=== PATIENT | male | born 1970 | race African-American/Black ===

== ENCOUNTER 2020-10-23 16:19 | Inpatient (IN) | payer MEDICARE, OTHER ==
[2020-10-23] VITALS (18 sets, daily range): BP systolic 89–122; BP diastolic 46–82
[~2020-10-23] VITALS: Ht 167.6 cm; Wt 139.0 kg
[2020-10-23] MEDS ORDERED: SUCCINYLCHOLINE CHLORIDE 20 MG/ML 10ML VIAL IV ONE (17:14)
[2020-10-23] MEDS ORDERED: ETOMIDATE (2MG/ML) 20ML VIAL IV ONE (17:14)
[2020-10-23] MEDS ORDERED: NOREPINEPHRINE 8 MG/250ML KIT 250 ML IV ONE (17:19)
[2020-10-23] MEDS: NOREPINEPHRINE 8 MG/250ML KIT 250 ML IV SCH (17:20)
[2020-10-23] MEDS ORDERED: PROPOFOL 100 ML IV ONE (17:29)
[2020-10-23] MEDS: MIDAZOLAM DRIP 50 mg/50mL 50 ML IV SCH ×2 (17:39→23:30)
[2020-10-23 17:42] LABS: Basophils # (auto) 0 10 ^3/uL (0-0.2); Basophils % (auto) 0.1 % (0.0-2.0); Eosinophils # (auto) 0 10 ^3/uL (0-0.8); Hematocrit 27.6 % (41.0-53.0); Hemoglobin 8.8 g/dL (13.5-17.5); Lymphocytes # (auto) 0.9 10 ^3/uL (0.4-5.4); Lymphocytes % (auto) 11.1 % (10.0-50.0); Mean Corpuscular Hemoglobin 27.7 pg (28.0-32.0); Mean Corpuscular Hgb Conc. 31.8 g/dL (32.0-36.0); Mean Corpuscular Volume 87.3 fL (80.0-100.0); Monocytes # (auto) 0.8 10 ^3/uL (0-1.3); Monocytes % (auto) 9.8 % (0.0-12.0); Neutrophils # (auto) 6.7 10 ^3/uL (1.6-8.6); Nucleated Red Blood Cells % 0.1 %; Red Blood Cells 3.16 10^6/uL (4.5-5.90); Red Cell Distribution Width 14.8 % (11.8-14.3); White Blood Cell 8.4 10^3/uL (4.4-10.8)
[2020-10-23] MEDS ORDERED: cefTRIAXone 1GM/50ML D5W 50 ML IV ONE (17:45)
[2020-10-23] MEDS ORDERED: FUROSEMIDE 40 MG/4 ML VIAL IV ONE (17:45)
[2020-10-23] MEDS ORDERED: AZITHROMYCIN 500MG/ 250ML 250 ML IV ONE (17:45)
[2020-10-23 17:51] LABS: Albumin 1.5 g/dL (3.4-5.0); Anion Gap 9 (5-15); Blood Urea Nitrogen 18 mg/dL (7-18); Carbon Dioxide 17 mmol/L (21-32); Chloride 121 mmol/L (98-107); Glucose 64 mg/dL (74-106); Sodium 147 mmol/L (136-145)
[2020-10-23 17:53] LABS: Lactic Acid w/Reflex 5.1 mmol/L (0.4-2.0)
[2020-10-23 17:57] LABS: Alanine Aminotransferase 30 U/L (16-61); Alkaline Phosphatase 67 U/L (45-117); Aspartate Aminotransferase 30 U/L (15-37); Bilirubin, Total 0.2 mg/dL (0.2-1.0); GFR African American 187 mL/min; GFR Non-African American 155 mL/min; INR 1.29 (0.9-1.15); Partial Thromboplastin Time 27.4 sec (23.0-31.2); Total Protein 3.2 g/dL (6.4-8.2)
[2020-10-23] MEDS: PROPOFOL 100 ML IV SCH (18:05)
[2020-10-23 18:22] LABS: Potassium 2.2 mmol/L (3.5-5.1)
[2020-10-23 18:23] LABS: Calcium < 5.0 mg/dL (8.5-10.1)
[2020-10-23] MEDS ORDERED: ALBUTEROL SULF HFA 90MCG INH 200DOSE IN PRN (18:30)
[2020-10-23] MEDS: POTASSIUM CHL 20MEQ/100ML 100 ML IV SCH ×5 (18:30→22:35)
[2020-10-23] MEDS ORDERED: PANTOPRAZOLE 40 MG/10 ML VIAL INJ IV ONE (18:30)
[2020-10-23] MEDS ORDERED: PROMETHAZINE HCL 25 MG/ML 1ML IV PRN (18:30)
[2020-10-23] MEDS ORDERED: CALCIUM CHL 100MG/ML 1,000 MG in D5W 5% 100 ML IV ONE (18:30)
[2020-10-23] MEDS ORDERED: MORPHINE SULFATE INJECTION 2 MG/ML SYRG IV PRN (19:15)
[2020-10-23] MEDS ORDERED: NITROGLYCERIN 0.4 MG SL TAB SL PRN (19:15)
[2020-10-23 19:26] LABS: Urine Bacteria FEW /hpf (None Seen); Urine Blood TRACE /uL (Negative); Urine Hyaline Cast MOD /lpf (0 - 2); Urine Mucus FEW (None Seen); Urine Specific Gravity 1.021 (1.001-1.035); Urine WBC 4 /hpf (0 - 3)
[2020-10-23 19:42] LABS: Amphetamine Screen, Urine NEGATIVE (NEGATIVE); Barbiturate Scree,Urine NEGATIVE (NEGATIVE); Benzodiazephine Screen, Urine NEGATIVE (NEGATIVE); Cannabinoid Screen, Urine NEGATIVE (NEGATIVE); Cocaine Screen, Urine NEGATIVE (NEGATIVE); Opiate Scree,Urine NEGATIVE (NEGATIVE); Phencyclidine Screen, Urine NEGATIVE (NEGATIVE)
[2020-10-23 19:51] LABS: Lactic Acid w/Reflex 2.3 mmol/L (0.4-2.0)
[2020-10-23] MEDS ORDERED: BUDESONIDE (INHALATION) 180 MCG IH IN SCH (22:00)
[2020-10-23] MEDS: CLINDAMYCIN 600MG IV 50 ML IV SCH (22:36)
[2020-10-23] MEDS: ENOXAPARIN SOD 40 MG/0.4 ML SYRINGE SC SCH (22:36)
[2020-10-23] MEDS: FLORASTOR (S. BOULARDII) 250 MG CAP PO SCH (22:36)
[2020-10-24] VITALS (104 sets, daily range): BP systolic 87–128; BP diastolic 51–89
[2020-10-24] MEDS: ACETAMINOPHEN 325 MG TAB PO PRN (00:10)
[2020-10-24] MEDS: POTASSIUM CHL 20MEQ/100ML 100 ML IV SCH ×2 (00:10→00:30)
[2020-10-24] MEDS ORDERED: BENA40TA8 PO (00:21)
[2020-10-24] MEDS ORDERED: KEP500T PO (00:21)
[2020-10-24] MEDS ORDERED: ALLO100T PO (00:21)
[2020-10-24] MEDS ORDERED: METO-159 PO (00:21)
[2020-10-24] MEDS ORDERED: LEVO112T4 PO (00:21)
[2020-10-24] MEDS ORDERED: PHE100C PO (00:21)
[2020-10-24 04:03] LABS: Basophils # (auto) 0 10 ^3/uL (0-0.2); Basophils % (auto) 0.3 % (0.0-2.0); Eosinophils # (auto) 0 10 ^3/uL (0-0.8); Eosinophils % (auto) 0.3 % (0.0-7.0); Hematocrit 40.1 % (41.0-53.0); Lymphocytes # (auto) 2.9 10 ^3/uL (0.4-5.4); Mean Corpuscular Hgb Conc. 32.5 g/dL (32.0-36.0); Mean Corpuscular Volume 83.1 fL (80.0-100.0); Monocytes % (auto) 8.2 % (0.0-12.0); Neutrophils # (auto) 8.2 10 ^3/uL (1.6-8.6); Neutrophils % (auto) 67.2 % (37.0-80.0); Nucleated Red Blood Cells % 0.4 %; Red Blood Cells 4.83 10^6/uL (4.5-5.90); White Blood Cell 12.1 10^3/uL (4.4-10.8)
[2020-10-24 04:19] LABS: Albumin 2.9 g/dL (3.4-5.0); Calcium 8.3 mg/dL (8.5-10.1); Potassium 4.3 mmol/L (3.5-5.1)
[2020-10-24] MEDS: MIDAZOLAM DRIP 50 mg/50mL 50 ML IV SCH ×4 (04:21→20:10)
[2020-10-24 04:27] LABS: BUN/Creatinine Ratio 25.9; Bilirubin, Total 0.8 mg/dL (0.2-1.0); Total Protein 6.4 g/dL (6.4-8.2)
[2020-10-24] MEDS: CLINDAMYCIN 600MG IV 50 ML IV SCH ×3 (05:18→21:12)
[2020-10-24] MEDS ORDERED: LEVOTHYROXINE SODIUM 112 MCG TAB PO SCH (07:00)
[2020-10-24] MEDS: PROPOFOL 100 ML IV SCH ×2 (09:47→18:15)
[2020-10-24] MEDS ORDERED: DexAMETHasone SOD PHOS 10MG/1ML VIAL INJ IV SCH (10:00)
[2020-10-24] MEDS ORDERED: ASCORBIC ACID 1,000 MG TAB PO SCH (10:00)
[2020-10-24] MEDS ORDERED: ZINC SULFATE 220mg CAP or TAB PO SCH (10:00)
[2020-10-24] MEDS ORDERED: POTASSIUM CHL 20 Meq TABLET PO SCH (10:00)
[2020-10-24] MEDS ORDERED: FUROSEMIDE 40 MG/4 ML VIAL IV SCH (10:00)
[2020-10-24] MEDS ORDERED: CHOLECALCIFEROL (VITD3) 2,000 UNIT CAP/TAB PO SCH (10:00)
[2020-10-24] MEDS: levoFLOXacin 500MG 100 ML IV SCH (10:38)
[2020-10-24] MEDS: PANTOPRAZOLE 40 MG/10 ML VIAL INJ IV SCH (10:39)
[2020-10-24] MEDS: FLORASTOR (S. BOULARDII) 250 MG CAP PO SCH (10:41)
[2020-10-24 14:16] LABS: Hematocrit 42.5 % (41.0-53.0); Hemoglobin 14.1 g/dL (13.5-17.5)
[2020-10-24] MEDS ORDERED: POTASSIUM EFFERVESENT TAB 25 MEQ GT ONE (14:45)
[2020-10-24] MEDS ORDERED: SODIUM CHLORIDE 0.9% 1,000 ML IV SCH (14:45)
[2020-10-24] MEDS: ENOXAPARIN SOD 40 MG/0.4 ML SYRINGE SC SCH ×2 (14:56→21:13)
[2020-10-24] MEDS: NOREPINEPHRINE 8 MG/250ML KIT 250 ML IV SCH ×2 (16:36→17:47)
[2020-10-25] VITALS (60 sets, daily range): BP systolic 109–167; BP diastolic 72–120
[2020-10-25] MEDS: PROPOFOL 100 ML IV SCH ×2 (01:52→08:03)
[2020-10-25] MEDS: LACTULOSE 20Gm/30ML SOLN PO PRN (03:01)
[2020-10-25 04:46] LABS: Albumin 2.6 g/dL (3.4-5.0); BUN/Creatinine Ratio 27.8; Bilirubin, Total 0.7 mg/dL (0.2-1.0); Calcium 8.3 mg/dL (8.5-10.1)
[2020-10-25 05:20] LABS: Basophils # (auto) 0 10 ^3/uL (0-0.2); Basophils % (auto) 0.3 % (0.0-2.0); Eosinophils # (auto) 0.1 10 ^3/uL (0-0.8); Eosinophils % (auto) 0.7 % (0.0-7.0); Hematocrit 40.8 % (41.0-53.0); Hemoglobin 13.3 g/dL (13.5-17.5); Lymphocytes # (auto) 1.7 10 ^3/uL (0.4-5.4); Lymphocytes % (auto) 15.6 % (10.0-50.0); Mean Corpuscular Hemoglobin 27.1 pg (28.0-32.0); Mean Corpuscular Hgb Conc. 32.6 g/dL (32.0-36.0); Mean Corpuscular Volume 83.1 fL (80.0-100.0); Monocytes % (auto) 9.5 % (0.0-12.0); Neutrophils # (auto) 7.8 10 ^3/uL (1.6-8.6); Neutrophils % (auto) 73.9 % (37.0-80.0); Nucleated Red Blood Cells % 0.1 %; Red Blood Cells 4.91 10^6/uL (4.5-5.90); Red Cell Distribution Width 14.7 % (11.8-14.3); White Blood Cell 10.6 10^3/uL (4.4-10.8)
[2020-10-25] MEDS: CLINDAMYCIN 600MG IV 50 ML IV SCH ×3 (05:34→21:51)
[2020-10-25] MEDS: LEVOTHYROXINE SODIUM 50 MCG TAB PO SCH (07:08)
[2020-10-25] MEDS: PANTOPRAZOLE 40 MG/10 ML VIAL INJ IV SCH (09:05)
[2020-10-25] MEDS: ENOXAPARIN SOD 40 MG/0.4 ML SYRINGE SC SCH ×2 (09:06→20:54)
[2020-10-25] MEDS ORDERED: POTASSIUM EFFERVESENT TAB 25 MEQ GT SCH (10:00)
[2020-10-25] MEDS ORDERED: ALBUTEROL SULF 2.5 MG/0.5ML(0.5%) NEB SOLN NEB ONE (11:30)
[2020-10-25] MEDS: levoFLOXacin 500MG 100 ML IV SCH (11:58)
[2020-10-25] MEDS: MORPHINE SULFATE INJECTION 2 MG/ML SYRG IV PRN ×3 (15:11→23:49)
[2020-10-25] MEDS ORDERED: LORazepam 2MG/ML-1ML VIAL IV ONE ×2 (17:15→21:45)
[2020-10-25] MEDS ORDERED: FUROSEMIDE 20 MG/2 ML VIAL IV ONE (19:00)
[2020-10-25] MEDS ORDERED: LORazepam 2MG/ML-1ML VIAL IV PRN (20:45)
[2020-10-25] MEDS ORDERED: PHENYTOIN IV DILANTIN 1,000 MG in SODIUM CHL 0.9% 250 ML IV ONE (20:45)
[2020-10-25] MEDS ORDERED: PHENYTOIN SODIUM 50 MG/ML 5ML INJ VIAL IV ONE (22:38)
[2020-10-26] VITALS (36 sets, daily range): BP systolic 97–143; BP diastolic 57–96
[2020-10-26 04:30] LABS: Basophils # (auto) 0 10 ^3/uL (0-0.2); Basophils % (auto) 0.4 % (0.0-2.0); Eosinophils # (auto) 0.1 10 ^3/uL (0-0.8); Eosinophils % (auto) 1.1 % (0.0-7.0); Hematocrit 42.2 % (41.0-53.0); Lymphocytes # (auto) 1.3 10 ^3/uL (0.4-5.4); Lymphocytes % (auto) 12.6 % (10.0-50.0); Mean Corpuscular Hemoglobin 28.3 pg (28.0-32.0); Mean Corpuscular Hgb Conc. 33.3 g/dL (32.0-36.0); Monocytes # (auto) 1.3 10 ^3/uL (0-1.3); Monocytes % (auto) 12.7 % (0.0-12.0); Neutrophils # (auto) 7.7 10 ^3/uL (1.6-8.6); Neutrophils % (auto) 73.2 % (37.0-80.0); Nucleated Red Blood Cells % 0.1 %; Red Blood Cells 4.96 10^6/uL (4.5-5.90); Red Cell Distribution Width 15.4 % (11.8-14.3); White Blood Cell 10.5 10^3/uL (4.4-10.8)
[2020-10-26 04:51] LABS: Albumin 2.9 g/dL (3.4-5.0); Bilirubin, Total 0.9 mg/dL (0.2-1.0); Calcium 8.5 mg/dL (8.5-10.1); Total Protein 6.9 g/dL (6.4-8.2)
[2020-10-26] MEDS: CLINDAMYCIN 600MG IV 50 ML IV SCH ×2 (06:00→12:09)
[2020-10-26] MEDS: LEVOTHYROXINE SODIUM 50 MCG TAB PO SCH (06:39)
[2020-10-26] MEDS: MORPHINE SULFATE INJECTION 2 MG/ML SYRG IV PRN ×2 (06:45→21:50)
[2020-10-26] MEDS: PHENYTOIN SODIUM 50 MG/ML 2ML VIAL IV SCH ×3 (12:07→20:45)
[2020-10-26] MEDS: POTASSIUM EFFERVESENT TAB 25 MEQ GT SCH (12:07)
[2020-10-26] MEDS: levoFLOXacin 500MG 100 ML IV SCH (12:08)
[2020-10-26] MEDS: PANTOPRAZOLE 40 MG/10 ML VIAL INJ IV SCH (12:09)
[2020-10-26] MEDS: ENOXAPARIN SOD 40 MG/0.4 ML SYRINGE SC SCH ×2 (12:15→21:49)
[2020-10-26] MEDS: PROPOFOL 100 ML IV SCH (16:09)
[2020-10-26] MEDS: DOXYCYCLINE 100MG/250ML 250 ML IV SCH (16:57)
[2020-10-26] MEDS: NOREPINEPHRINE 8 MG/250ML KIT 250 ML IV SCH (17:30)
[2020-10-26] MEDS: MIDAZOLAM DRIP 50 mg/50mL 50 ML IV SCH (17:30)
[2020-10-27] VITALS (30 sets, daily range): BP systolic 122–168; BP diastolic 85–125
[2020-10-27] MEDS: DOXYCYCLINE 100MG/250ML 250 ML IV SCH ×2 (00:49→12:59)
[2020-10-27] MEDS: PHENYTOIN SODIUM 50 MG/ML 2ML VIAL IV SCH ×2 (02:11→12:55)
[2020-10-27] MEDS: LEVOTHYROXINE SODIUM 50 MCG TAB PO SCH (06:37)
[2020-10-27] MEDS: POTASSIUM EFFERVESENT TAB 25 MEQ GT SCH (12:57)
[2020-10-27] MEDS: PANTOPRAZOLE 40 MG/10 ML VIAL INJ IV SCH (12:58)
[2020-10-27] MEDS: ENOXAPARIN SOD 40 MG/0.4 ML SYRINGE SC SCH ×2 (12:59→21:25)
[2020-10-27] MEDS ORDERED: HYDROcodone-ACET 5/325MG TAB PO PRN (14:00)
[2020-10-27] MEDS ORDERED: BENAZEPRIL HCL 10 MG TAB PO ONE (14:00)
[2020-10-27] MEDS: ACETAMINOPHEN 325 MG TAB PO PRN (15:21)
[2020-10-27] MEDS: levETIRAcetam 500 MG TAB PO SCH (21:25)
[2020-10-27] MEDS: PHENYTOIN SODIUM 100 MG CAP PO SCH (21:25)
[2020-10-28] VITALS (15 sets, daily range): BP systolic 116–161; BP diastolic 77–108
[2020-10-28] MEDS: DOXYCYCLINE 100MG/250ML 250 ML IV SCH (00:20)
[2020-10-28] MEDS: LEVOTHYROXINE SODIUM 50 MCG TAB PO SCH (06:24)
[2020-10-28] MEDS: POTASSIUM CHL 20 Meq TABLET PO SCH (10:01)
[2020-10-28] MEDS: BENAZEPRIL HCL 10 MG TAB PO SCH (10:01)
[2020-10-28] MEDS: levETIRAcetam 500 MG TAB PO SCH ×2 (10:01→21:46)
[2020-10-28] MEDS: PANTOPRAZOLE 40 MG TAB PO SCH (10:01)
[2020-10-28] MEDS: ALLOPURINOL 100 MG TAB PO SCH (10:02)
[2020-10-28] MEDS: FUROSEMIDE 40 MG TAB PO SCH (10:02)
[2020-10-28] MEDS: ENOXAPARIN SOD 40 MG/0.4 ML SYRINGE SC SCH ×2 (10:02→21:46)
[2020-10-28 10:13] LABS: Basophils # (auto) 0 10 ^3/uL (0-0.2); Basophils % (auto) 0.3 % (0.0-2.0); Eosinophils # (auto) 0.5 10 ^3/uL (0-0.8); Eosinophils % (auto) 4.8 % (0.0-7.0); Hematocrit 43.4 % (41.0-53.0); Hemoglobin 14.1 g/dL (13.5-17.5); Lymphocytes # (auto) 1.4 10 ^3/uL (0.4-5.4); Lymphocytes % (auto) 14.8 % (10.0-50.0); Mean Corpuscular Hemoglobin 27.7 pg (28.0-32.0); Mean Corpuscular Hgb Conc. 32.5 g/dL (32.0-36.0); Monocytes % (auto) 9.8 % (0.0-12.0); Neutrophils # (auto) 6.8 10 ^3/uL (1.6-8.6); Neutrophils % (auto) 70.3 % (37.0-80.0); Nucleated Red Blood Cells % 0.1 %; Red Blood Cells 5.11 10^6/uL (4.5-5.90); Red Cell Distribution Width 15.1 % (11.8-14.3); White Blood Cell 9.7 10^3/uL (4.4-10.8)
[2020-10-28 10:23] LABS: Albumin 2.8 g/dL (3.4-5.0); Calcium 8.8 mg/dL (8.5-10.1)
[2020-10-28 10:28] LABS: BUN/Creatinine Ratio 15.4; Bilirubin, Total 0.6 mg/dL (0.2-1.0); Total Protein 6.9 g/dL (6.4-8.2)
[2020-10-28] MEDS ORDERED: LORazepam 2MG/ML-1ML VIAL IV PRN ×2 (18:30→21:00)
[2020-10-28] MEDS: DOXYCYCLINE 100 MG TAB/CAP PO SCH (21:46)
[2020-10-28] MEDS: PHENYTOIN SODIUM 100 MG CAP PO SCH (21:46)
[2020-10-29] VITALS: BP 133/77
[2020-10-29 05:00] VITALS: BP 137/88
[2020-10-29] MEDS: LACTULOSE 20Gm/30ML SOLN PO PRN (06:27)
[2020-10-29] MEDS: LEVOTHYROXINE SODIUM 50 MCG TAB PO SCH (06:27)
[2020-10-29 08:07] VITALS: BP 116/83
[2020-10-29] MEDS: ENOXAPARIN SOD 40 MG/0.4 ML SYRINGE SC SCH (09:31)
[2020-10-29] MEDS: FUROSEMIDE 40 MG TAB PO SCH (09:32)
[2020-10-29] MEDS: DOXYCYCLINE 100 MG TAB/CAP PO SCH (09:32)
[2020-10-29] MEDS: BENAZEPRIL HCL 10 MG TAB PO SCH (09:32)
[2020-10-29] MEDS: PANTOPRAZOLE 40 MG TAB PO SCH (09:33)
[2020-10-29] MEDS: ALLOPURINOL 100 MG TAB PO SCH (09:33)
[2020-10-29] MEDS: levETIRAcetam 500 MG TAB PO SCH (09:33)
[2020-10-29] MEDS: POTASSIUM CHL 20 Meq TABLET PO SCH (09:38)
[2020-10-29 13:52] VITALS: BP 134/94
[2020-10-29 14:13] VITALS: BP 134/94
[2020-10-29 17:35] VITALS: BP 124/74
== END 2020-10-29 18:06 | disposition home health service (06) | DRG 871 ==
LOC: ER 16:19 → EDBD 16:19 → OVERFLOW 19:12 → EDBD 19:12 → ICU WEST 21:07 → UNDODISIN 10-26 08:15 → TELE-CENTR 10-28 11:18
PROVIDERS: ADMIT Internal Medicine; ATTEND Internal Medicine
PROC: 5A1945Z Respiratory Ventilation, 24-96 Consecutive Hours (ICD-10-PCS; principal; 2020-10-23)
PROC: 0BH17EZ Insertion of Endotracheal Airway into Trachea, Via Natural or Artificial Opening (ICD-10-PCS; 2020-10-23)
PROC: 02HV33Z Insertion of Infusion Device into Superior Vena Cava, Percutaneous Approach (ICD-10-PCS; 2020-10-23)
PROC: 02HV33Z Insertion of Infusion Device into Superior Vena Cava, Percutaneous Approach (ICD-10-PCS; 2020-10-23)
PROC: 5A09357 Assistance with Respiratory Ventilation, Less than 24 Consecutive Hours, Continuous Positive Airway Pressure (ICD-10-PCS; 2020-10-25)
PROC: 5A09357 Assistance with Respiratory Ventilation, Less than 24 Consecutive Hours, Continuous Positive Airway Pressure (ICD-10-PCS; 2020-10-26)
PROC: 05HB33Z Insertion of Infusion Device into Right Basilic Vein, Percutaneous Approach (ICD-10-PCS; 2020-10-27)
PROC: B54MZZA Ultrasonography of Right Upper Extremity Veins, Guidance (ICD-10-PCS; 2020-10-27)
PROC: 5A09357 Assistance with Respiratory Ventilation, Less than 24 Consecutive Hours, Continuous Positive Airway Pressure (ICD-10-PCS; 2020-10-29)
DX: A41.9 Sepsis, unspecified organism (principal); J96.02 Acute respiratory failure with hypercapnia; E43 Unspecified severe protein-calorie malnutrition; I21.4 Non-ST elevation (NSTEMI) myocardial infarction; J15.6 Pneumonia due to other Gram-negative bacteria; G93.41 Metabolic encephalopathy; I50.43 Acute on chronic combined systolic (congestive) and diastolic (congestive) heart failure; J15.9 Unspecified bacterial pneumonia; J96.01 Acute respiratory failure with hypoxia; D68.9 Coagulation defect, unspecified; Z68.43 Body mass index [BMI] 50.0-59.9, adult; J98.11 Atelectasis; F84.0 Autistic disorder; N17.9 Acute kidney failure, unspecified; I11.0 Hypertensive heart disease with heart failure; E83.51 Hypocalcemia; E87.6 Hypokalemia; D64.9 Anemia, unspecified; E66.01 Morbid (severe) obesity due to excess calories; G40.909 Epilepsy, unspecified, not intractable, without status epilepticus; E03.9 Hypothyroidism, unspecified; F17.200 Nicotine dependence, unspecified, uncomplicated; F79 Unspecified intellectual disabilities; H54.7 Unspecified visual loss; Z79.899 Other long term (current) drug therapy; Z82.49 Family history of ischemic heart disease and other diseases of the circulatory system; Z20.822 Contact with and (suspected) exposure to COVID-19
CPT/HCPCS: 31500; 36415; 36556; 36600; 71045; 74176; 80053; 80185; 80307; 81001; 82542; 82550; 82805; 82962; 83605; 83735; 83880; 84443; 84484; 85014; 85018; 85025; 85045; 85379; 85610; 85652; 85730; 87040; 87070; 87081; 87205; 87426; 93005; 93306; 93970; 94002; 94003; 94640; 94660; 95819; 96365; 96368; 96375; 97163; 97530; 99291; C9113; G0378; J0696; J1100; J1956; J2250; J2704; J3480; J3490; J7060

== ENCOUNTER 2020-11-05 18:05 | Inpatient (IN) | payer MEDICARE ==
[~2020-11-05] VITALS: Ht 182.9 cm; Wt 138.0 kg
[~2020-11-05 18:05] MED LIST: ALLO100T PO; BENA40TA8 PO; KEP500T PO; LEVO112T4 PO; METO-159 PO; PHE100C PO
[2020-11-05] MEDS ORDERED: cloNIDine HCL 0.1 MG TAB PO ONE (18:30)
[2020-11-05 19:31] LABS: Basophils # (auto) 0.1 10 ^3/uL (0-0.2); Basophils % (auto) 0.6 % (0.0-2.0); Eosinophils # (auto) 0.3 10 ^3/uL (0-0.8); Eosinophils % (auto) 3.7 % (0.0-7.0); Hematocrit 43.4 % (41.0-53.0); Hemoglobin 14.3 g/dL (13.5-17.5); Lymphocytes # (auto) 2.2 10 ^3/uL (0.4-5.4); Lymphocytes % (auto) 28.4 % (10.0-50.0); Mean Corpuscular Volume 84.7 fL (80.0-100.0); Monocytes # (auto) 0.6 10 ^3/uL (0-1.3); Monocytes % (auto) 7.9 % (0.0-12.0); Neutrophils # (auto) 4.6 10 ^3/uL (1.6-8.6); Neutrophils % (auto) 59.4 % (37.0-80.0); Nucleated Red Blood Cells % 0.2 %; Platelet Count (auto) 393 10^3/uL (140-450); Red Blood Cells 5.12 10^6/uL (4.5-5.90); Red Cell Distribution Width 15.2 % (11.8-14.3); White Blood Cell 7.8 10^3/uL (4.4-10.8)
[2020-11-05 19:40] LABS: Alanine Aminotransferase 29 U/L (16-61); Albumin 3.3 g/dL (3.4-5.0); Anion Gap 8 (5-15); Aspartate Aminotransferase 16 U/L (15-37); BUN/Creatinine Ratio 19.6; Blood Urea Nitrogen 11 mg/dL (7-18); Calcium 8.4 mg/dL (8.5-10.1); Carbon Dioxide 30 mmol/L (21-32); Chloride 102 mmol/L (98-107); GFR African American 199 mL/min; GFR Non-African American 165 mL/min; Glucose 88 mg/dL (74-106); Magnesium 2.4 mg/dL (1.6-2.6); Potassium 3.6 mmol/L (3.5-5.1); Sodium 140 mmol/L (136-145)
[2020-11-05 19:44] LABS: Alkaline Phosphatase 97 U/L (45-117); Bilirubin, Total 0.3 mg/dL (0.2-1.0); Total Protein 7.3 g/dL (6.4-8.2)
[2020-11-05 19:53] LABS: INR 1.1 (0.9-1.15); Partial Thromboplastin Time 27.7 sec (23.0-31.2)
[2020-11-05] MEDS ORDERED: LABETALOL HCL 5 MG/ML 4ML SYRINGE IV ONE (21:15)
[2020-11-05] MEDS ORDERED: LORazepam 0.5 MG TAB PO ONE (21:15)
[2020-11-05] MEDS ORDERED: IOHEXOL 350 MG/ML 100ML IJ ONE (21:31)
[2020-11-06] VITALS (8 sets, daily range): BP systolic 136–182; BP diastolic 81–126
[2020-11-06] MEDS ORDERED: diphenhdrAMINE HCL 50 MG/1 ML VL IV ONE ×3 (00:15→04:45)
[2020-11-06] MEDS ORDERED: LORazepam 2MG/ML-1ML VIAL IV ONE ×2 (00:15→01:30)
[2020-11-06] MEDS ORDERED: LABETALOL HCL 5 MG/ML 4ML SYRINGE IV ONE (01:45)
[2020-11-06] MEDS ORDERED: ONDANSETRON HCL 4 MG/2 ML VIAL IV PRN (07:15)
[2020-11-06] MEDS ORDERED: LORazepam 2MG/ML-1ML VIAL IV PRN (07:15)
[2020-11-06] MEDS ORDERED: NITROGLYCERIN 0.4 MG SL TAB SL PRN (07:15)
[2020-11-06] MEDS ORDERED: MORPHINE SULF INJ 2 MG/ML SYRINGE 1ML IV PRN (07:15)
[2020-11-06] MEDS ORDERED: hydrALAZINE HCL 20 MG/ML VL IV PRN (07:15)
[2020-11-06] MEDS ORDERED: ACETAMINOPHEN 325 MG TAB PO PRN (07:15)
[2020-11-06] MEDS ORDERED: DOCUSATE SOD 100 MG CAP PO PRN (07:15)
[2020-11-06] MEDS ORDERED: HYDROcodone-ACET 5/325MG TAB PO PRN (07:15)
[2020-11-06] MEDS ORDERED: LEVOTHYROXINE SODIUM 112 MCG TAB PO SCH (07:30)
[2020-11-06 09:15] LABS: Basophils # (auto) 0.1 10 ^3/uL (0-0.2); Basophils % (auto) 1.3 % (0.0-2.0); Eosinophils # (auto) 0.1 10 ^3/uL (0-0.8); Hematocrit 43.8 % (41.0-53.0); Hemoglobin 14.1 g/dL (13.5-17.5); Lymphocytes # (auto) 1.2 10 ^3/uL (0.4-5.4); Lymphocytes % (auto) 15.2 % (10.0-50.0); Mean Corpuscular Hemoglobin 27.5 pg (28.0-32.0); Mean Corpuscular Hgb Conc. 32.2 g/dL (32.0-36.0); Mean Corpuscular Volume 85.3 fL (80.0-100.0); Monocytes # (auto) 0.6 10 ^3/uL (0-1.3); Monocytes % (auto) 7.5 % (0.0-12.0); Neutrophils # (auto) 5.9 10 ^3/uL (1.6-8.6); Nucleated Red Blood Cells % 0.1 %; Platelet Count (auto) 403 10^3/uL (140-450); Red Blood Cells 5.14 10^6/uL (4.5-5.90); Red Cell Distribution Width 15.4 % (11.8-14.3); White Blood Cell 7.8 10^3/uL (4.4-10.8)
[2020-11-06 09:30] LABS: Albumin 3.4 g/dL (3.4-5.0); Calcium 8.8 mg/dL (8.5-10.1)
[2020-11-06 09:33] LABS: BUN/Creatinine Ratio 12.3; Bilirubin, Total 0.4 mg/dL (0.2-1.0); Total Protein 7.3 g/dL (6.4-8.2)
[2020-11-06] MEDS: ZINC SULFATE 220mg CAP or TAB PO SCH (09:41)
[2020-11-06] MEDS: MULTIPLE VITAMIN TAB PO SCH (09:42)
[2020-11-06] MEDS: METOPROLOL TARTRATE 50 MG TAB PO SCH ×2 (09:42→21:34)
[2020-11-06] MEDS: ASCORBIC ACID 500 MG TAB PO SCH ×2 (09:44→21:34)
[2020-11-06] MEDS: amLODIPine BESYLATE 5 MG TAB PO SCH (09:44)
[2020-11-06] MEDS: ALBUTEROL SULF 2.5 MG/0.5ML(0.5%) NEB SOLN NEB SCH ×4 (10:05→22:49)
[2020-11-06] MEDS: IPRATROPIUM BROM 0.5 MG/2.5ML INH SOL NEB SCH ×4 (10:05→22:49)
[2020-11-06] MEDS: ENOXAPARIN SOD 150 MG/1 ML SYRINGE SC SCH (11:24)
[2020-11-06] MEDS: FAMOTIDINE (10MG/ML) 2ML VL IV SCH ×2 (11:24→21:33)
[2020-11-06] MEDS ORDERED: FUROSEMIDE 40 MG/4 ML VIAL IV ONE (12:30)
[2020-11-06] MEDS ORDERED: METOPROLOL TARTRATE 1MG/1ML-5ML VIAL IV ONE (12:30)
[2020-11-06] MEDS: FUROSEMIDE 40 MG/4 ML VIAL IV SCH (18:05)
[2020-11-07 05:00] VITALS: BP 142/89
[2020-11-07 05:54] LABS: Basophils # (auto) 0 10 ^3/uL (0-0.2); Basophils % (auto) 0.4 % (0.0-2.0); Eosinophils # (auto) 0 10 ^3/uL (0-0.8); Eosinophils % (auto) 0.4 % (0.0-7.0); Hematocrit 46.6 % (41.0-53.0); Lymphocytes # (auto) 0.9 10 ^3/uL (0.4-5.4); Mean Corpuscular Volume 86.5 fL (80.0-100.0); Monocytes # (auto) 0.8 10 ^3/uL (0-1.3); Nucleated Red Blood Cells % 0.1 %; Red Blood Cells 5.39 10^6/uL (4.5-5.90)
[2020-11-07] MEDS: ALBUTEROL SULF 2.5 MG/0.5ML(0.5%) NEB SOLN NEB SCH ×5 (05:56→22:35)
[2020-11-07] MEDS: IPRATROPIUM BROM 0.5 MG/2.5ML INH SOL NEB SCH ×5 (05:56→22:35)
[2020-11-07 05:57] LABS: Hemoglobin 14.7 g/dL (13.5-17.5); Lymphocytes % (auto) 11.1 % (10.0-50.0); Mean Corpuscular Hemoglobin 27.3 pg (28.0-32.0); Mean Corpuscular Hgb Conc. 31.6 g/dL (32.0-36.0); Monocytes % (auto) 9.5 % (0.0-12.0); Neutrophils # (auto) 6.4 10 ^3/uL (1.6-8.6); Neutrophils % (auto) 78.6 % (37.0-80.0); Platelet Count (auto) 484 10^3/uL (140-450); Red Cell Distribution Width 15.1 % (11.8-14.3); White Blood Cell 8.1 10^3/uL (4.4-10.8)
[2020-11-07 06:23] LABS: Potassium 4.3 mmol/L (3.5-5.1)
[2020-11-07 06:31] LABS: Albumin 3.6 g/dL (3.4-5.0); BUN/Creatinine Ratio 14.5; Bilirubin, Total 0.3 mg/dL (0.2-1.0); Calcium 8.7 mg/dL (8.5-10.1); Magnesium 2.6 mg/dL (1.6-2.6); Phosphorus 5.4 mg/dL (2.5-4.90); Total Protein 7.9 g/dL (6.4-8.2)
[2020-11-07] MEDS: FUROSEMIDE 40 MG/4 ML VIAL IV SCH ×2 (06:50→17:00)
[2020-11-07] MEDS: LEVOTHYROXINE SODIUM 100 MCG/5 ML INJ IV SCH ×2 (06:51→10:07)
[2020-11-07] MEDS ORDERED: LEVOTHYROXINE SODIUM 112 MCG TAB PO SCH (07:00)
[2020-11-07 08:55] VITALS: BP 118/69
[2020-11-07] MEDS: ZINC SULFATE 220mg CAP or TAB PO SCH (10:00)
[2020-11-07] MEDS: MULTIPLE VITAMIN TAB PO SCH (10:00)
[2020-11-07] MEDS: ASCORBIC ACID 500 MG TAB PO SCH ×2 (10:00→20:47)
[2020-11-07] MEDS: FAMOTIDINE (10MG/ML) 2ML VL IV SCH ×2 (10:06→20:47)
[2020-11-07] MEDS: ENOXAPARIN SOD 150 MG/1 ML SYRINGE SC SCH (10:07)
[2020-11-07] MEDS: METOPROLOL TARTRATE 50 MG TAB PO SCH ×2 (10:08→20:47)
[2020-11-07] MEDS: amLODIPine BESYLATE 5 MG TAB PO SCH (10:08)
[2020-11-07 13:10] VITALS: BP 132/96
[2020-11-07 16:26] VITALS: BP 142/64
[2020-11-07 20:00] VITALS: BP 138/96
[2020-11-07 22:00] VITALS: BP 138/96
[2020-11-08 05:00] VITALS: BP 153/84
[2020-11-08] MEDS: FUROSEMIDE 40 MG/4 ML VIAL IV SCH ×2 (06:54→18:12)
[2020-11-08] MEDS: ALBUTEROL SULF 2.5 MG/0.5ML(0.5%) NEB SOLN NEB SCH ×5 (07:05→22:30)
[2020-11-08] MEDS: IPRATROPIUM BROM 0.5 MG/2.5ML INH SOL NEB SCH ×5 (07:05→22:30)
[2020-11-08 08:59] VITALS: BP 141/98
[2020-11-08] MEDS: LEVOTHYROXINE SODIUM 100 MCG/5 ML INJ IV SCH (10:27)
[2020-11-08] MEDS: ENOXAPARIN SOD 150 MG/1 ML SYRINGE SC SCH (10:28)
[2020-11-08] MEDS: FAMOTIDINE (10MG/ML) 2ML VL IV SCH ×2 (10:28→22:19)
[2020-11-08] MEDS: METOPROLOL TARTRATE 50 MG TAB PO SCH ×2 (10:29→22:21)
[2020-11-08] MEDS: amLODIPine BESYLATE 5 MG TAB PO SCH (10:29)
[2020-11-08] MEDS: ASCORBIC ACID 500 MG TAB PO SCH ×2 (10:29→22:20)
[2020-11-08] MEDS: ZINC SULFATE 220mg CAP or TAB PO SCH (10:30)
[2020-11-08] MEDS: MULTIPLE VITAMIN TAB PO SCH (10:30)
[2020-11-08] MEDS ORDERED: TAMSULOSIN HYDROCHLORIDE 0.4 MG CAP PO ONE (11:15)
[2020-11-08 12:40] VITALS: BP 159/99
[2020-11-08 13:54] VITALS: BP 141/93
[2020-11-08 16:26] VITALS: BP 136/93
[2020-11-08 22:00] VITALS: BP 145/92
[2020-11-09 05:00] VITALS: BP 130/93
[2020-11-09 05:48] LABS: Basophils # (auto) 0.1 10 ^3/uL (0-0.2); Basophils % (auto) 1.4 % (0.0-2.0); Eosinophils # (auto) 0.3 10 ^3/uL (0-0.8); Hematocrit 41.7 % (41.0-53.0); Hemoglobin 13.6 g/dL (13.5-17.5); Lymphocytes # (auto) 1.8 10 ^3/uL (0.4-5.4); Lymphocytes % (auto) 24.4 % (10.0-50.0); Mean Corpuscular Hemoglobin 28.1 pg (28.0-32.0); Mean Corpuscular Hgb Conc. 32.7 g/dL (32.0-36.0); Mean Corpuscular Volume 86.1 fL (80.0-100.0); Monocytes # (auto) 0.7 10 ^3/uL (0-1.3); Monocytes % (auto) 9.9 % (0.0-12.0); Neutrophils # (auto) 4.5 10 ^3/uL (1.6-8.6); Neutrophils % (auto) 60.3 % (37.0-80.0); Nucleated Red Blood Cells % 0.1 %; Platelet Count (auto) 371 10^3/uL (140-450); Red Blood Cells 4.84 10^6/uL (4.5-5.90); Red Cell Distribution Width 14.5 % (11.8-14.3); White Blood Cell 7.6 10^3/uL (4.4-10.8)
[2020-11-09] MEDS: FUROSEMIDE 40 MG/4 ML VIAL IV SCH (06:11)
[2020-11-09 06:17] LABS: BUN/Creatinine Ratio 23.2; Calcium 8.9 mg/dL (8.5-10.1); Potassium 3.7 mmol/L (3.5-5.1)
[2020-11-09 06:28] VITALS: BP 130/93
[2020-11-09] MEDS: ALBUTEROL SULF 2.5 MG/0.5ML(0.5%) NEB SOLN NEB SCH ×5 (07:19→22:29)
[2020-11-09] MEDS: IPRATROPIUM BROM 0.5 MG/2.5ML INH SOL NEB SCH ×5 (07:20→22:29)
[2020-11-09 08:45] VITALS: BP 139/84
[2020-11-09] MEDS: FAMOTIDINE (10MG/ML) 2ML VL IV SCH (09:30)
[2020-11-09] MEDS: LEVOTHYROXINE SODIUM 100 MCG/5 ML INJ IV SCH (09:30)
[2020-11-09] MEDS: PHENYTOIN SODIUM 100 MG CAP PO SCH (09:31)
[2020-11-09] MEDS: ZINC SULFATE 220mg CAP or TAB PO SCH (09:31)
[2020-11-09] MEDS: ENOXAPARIN SOD 150 MG/1 ML SYRINGE SC SCH (09:32)
[2020-11-09] MEDS: METOPROLOL TARTRATE 50 MG TAB PO SCH ×2 (09:32→22:10)
[2020-11-09] MEDS: amLODIPine BESYLATE 5 MG TAB PO SCH (09:32)
[2020-11-09] MEDS: MULTIPLE VITAMIN TAB PO SCH (09:32)
[2020-11-09] MEDS: ASCORBIC ACID 500 MG TAB PO SCH (09:32)
[2020-11-09] MEDS ORDERED: levETIRAcetam 500 MG TAB PO ONE (12:15)
[2020-11-09] MEDS ORDERED: FAMOTIDINE 20 MG TAB PO ONE (12:15)
[2020-11-09] MEDS ORDERED: ENOXAPARIN SOD 150 MG/1 ML SYRINGE SC ONE (12:15)
[2020-11-09] MEDS ORDERED: BENAZEPRIL HCL 10 MG TAB PO ONE (12:15)
[2020-11-09] MEDS ORDERED: METOPROLOL TARTRATE 50 MG TAB PO ONE (12:15)
[2020-11-09] MEDS ORDERED: LEVOTHYROXINE SODIUM 112 MCG TAB PO ONE (12:15)
[2020-11-09] MEDS ORDERED: ALLOPURINOL 100 MG TAB PO ONE (12:15)
[2020-11-09 12:30] VITALS: BP 138/86
[2020-11-09 16:40] VITALS: BP 153/88
[2020-11-09] MEDS: FUROSEMIDE 40 MG TAB PO SCH (17:23)
[2020-11-09] MEDS: TAMSULOSIN HYDROCHLORIDE 0.4 MG CAP PO SCH (17:23)
[2020-11-09 22:00] VITALS: BP 152/71
[2020-11-09] MEDS: levETIRAcetam 500 MG TAB PO SCH (22:08)
[2020-11-10 05:00] VITALS: BP 159/88
[2020-11-10] MEDS: LEVOTHYROXINE SODIUM 112 MCG TAB PO SCH (05:58)
[2020-11-10] MEDS: ALBUTEROL SULF 2.5 MG/0.5ML(0.5%) NEB SOLN NEB SCH ×5 (05:59→23:22)
[2020-11-10] MEDS: IPRATROPIUM BROM 0.5 MG/2.5ML INH SOL NEB SCH ×5 (05:59→23:22)
[2020-11-10] MEDS: FUROSEMIDE 40 MG TAB PO SCH ×2 (06:03→18:01)
[2020-11-10 07:02] LABS: BUN/Creatinine Ratio 25.4; Calcium 9.1 mg/dL (8.5-10.1); Potassium 3.2 mmol/L (3.5-5.1)
[2020-11-10 09:00] VITALS: BP 153/85
[2020-11-10] MEDS: PHENYTOIN SODIUM 100 MG CAP PO SCH (09:28)
[2020-11-10] MEDS: levETIRAcetam 500 MG TAB PO SCH ×2 (09:29→21:41)
[2020-11-10] MEDS: MULTIPLE VITAMIN TAB PO SCH (09:30)
[2020-11-10] MEDS: FAMOTIDINE 20 MG TAB PO SCH (09:30)
[2020-11-10] MEDS: BENAZEPRIL HCL 10 MG TAB PO SCH (09:31)
[2020-11-10] MEDS: METOPROLOL TARTRATE 50 MG TAB PO SCH ×2 (09:32→21:41)
[2020-11-10] MEDS: ALLOPURINOL 100 MG TAB PO SCH (09:32)
[2020-11-10] MEDS ORDERED: ENOXAPARIN SOD 40 MG/0.4 ML SYRINGE SC SCH (10:00)
[2020-11-10] MEDS ORDERED: POTASSIUM CHL 20 Meq TABLET PO ONE (11:45)
[2020-11-10 13:00] VITALS: BP 141/92
[2020-11-10 17:00] VITALS: BP 127/96
[2020-11-10] MEDS: TAMSULOSIN HYDROCHLORIDE 0.4 MG CAP PO SCH (18:01)
[2020-11-10 22:00] VITALS: BP 134/90
[2020-11-10 22:41] VITALS: BP 113/73
[2020-11-11 05:00] VITALS: BP 148/86
[2020-11-11] MEDS: LEVOTHYROXINE SODIUM 112 MCG TAB PO SCH (05:37)
[2020-11-11] MEDS: FUROSEMIDE 40 MG TAB PO SCH ×2 (05:50→18:00)
[2020-11-11] MEDS: IPRATROPIUM BROM 0.5 MG/2.5ML INH SOL NEB SCH ×3 (07:14→13:26)
[2020-11-11] MEDS: ALBUTEROL SULF 2.5 MG/0.5ML(0.5%) NEB SOLN NEB SCH ×3 (07:14→13:26)
[2020-11-11 07:52] LABS: BUN/Creatinine Ratio 17.8; Calcium 8.8 mg/dL (8.5-10.1)
[2020-11-11 09:00] VITALS: BP 131/74
[2020-11-11] MEDS: PHENYTOIN SODIUM 100 MG CAP PO SCH (09:38)
[2020-11-11] MEDS: METOPROLOL TARTRATE 50 MG TAB PO SCH (09:39)
[2020-11-11] MEDS: FAMOTIDINE 20 MG TAB PO SCH (09:40)
[2020-11-11] MEDS: BENAZEPRIL HCL 10 MG TAB PO SCH (09:40)
[2020-11-11] MEDS: MULTIPLE VITAMIN TAB PO SCH (09:41)
[2020-11-11] MEDS: ALLOPURINOL 100 MG TAB PO SCH (09:41)
[2020-11-11] MEDS: levETIRAcetam 500 MG TAB PO SCH (09:42)
[2020-11-11] MEDS ORDERED: POTASSIUM CHL 20 Meq TABLET PO ONE (11:00)
[2020-11-11 12:57] VITALS: BP 130/87
[2020-11-11 13:00] VITALS: BP 130/87
[2020-11-11 17:00] VITALS: BP 129/80
[2020-11-11] MEDS: TAMSULOSIN HYDROCHLORIDE 0.4 MG CAP PO SCH (18:00)
== END 2020-11-11 19:40 | disposition home or self-care (01) | DRG 291 ==
LOC: ER 18:05 → TELE 18:06 → TELE-WESTW 11-06 11:08
PROVIDERS: ADMIT Nurse Practitioner Family; ATTEND Internal Medicine
PROC: 5A09357 Assistance with Respiratory Ventilation, Less than 24 Consecutive Hours, Continuous Positive Airway Pressure (ICD-10-PCS; principal; 2020-11-06)
DX: I11.0 Hypertensive heart disease with heart failure (principal); I50.31 Acute diastolic (congestive) heart failure; J96.21 Acute and chronic respiratory failure with hypoxia; E66.2 Morbid (severe) obesity with alveolar hypoventilation; E87.2 Acidosis; F84.0 Autistic disorder; Z68.41 Body mass index [BMI] 40.0-44.9, adult; G97.82 Other postprocedural complications and disorders of nervous system; Z20.822 Contact with and (suspected) exposure to COVID-19; G40.909 Epilepsy, unspecified, not intractable, without status epilepticus; I16.0 Hypertensive urgency; E87.70 Fluid overload, unspecified; E89.0 Postprocedural hypothyroidism; F79 Unspecified intellectual disabilities; H54.7 Unspecified visual loss; Z82.49 Family history of ischemic heart disease and other diseases of the circulatory system; Y83.8 Other surgical procedures as the cause of abnormal reaction of the patient, or of later complication, without mention of misadventure at the time of the procedure
CPT/HCPCS: 36415; 36600; 71045; 80048; 80053; 80185; 82805; 83735; 83880; 84100; 84439; 84443; 84484; 85025; 85379; 85610; 85730; 87081; 87426; 94640; 94660; 96374; 96375; 96376; 97116; 97530; G0378; J3490; J7060

== ENCOUNTER 2020-11-30 12:04 | Emergency (ER) | payer MEDICARE ==
[~2020-11-30] VITALS: Ht 180.3 cm; Wt 136.1 kg
[2020-11-30 12:04] VITALS: BP 155/79
== END 2020-11-30 12:35 | disposition home or self-care (01) ==
LOC: ER 12:04
DX: I16.0 Hypertensive urgency (principal); I10 Essential (primary) hypertension